=== PATIENT | female | born 1960 | race Caucasian/White ===

== ENCOUNTER 2018-06-06 11:02 | Outpatient (CLI) | payer OTHER ==
--- NOTE | 2018-06-06 13:45 | MMO ---
BILATERAL SCREENING MAMMOGRAM: History: 57-year-old female. Routine screening mammography. Comparison: 07-24-14, 11-26-11 Technique: CC and MLO views of both breasts were submitted for interpretation. Images obtained with implants pre sent and implants displaced. FINDINGS: Breasts are composed of scattered fibroglandular tissue. Bilaterally, no suspicious mass, architectur al distortion, or suspicious calcifications. There are benign appearing calcifications in the left an d right breasts. Bilateral implants are intact. IMPRESSION: BIRADS category 2 - benign findings. Recommend annual screening mammography. POS: [facility]
== END 2018-06-06 11:03 | disposition home or self-care (01) ==
LOC: SCSMAMMO 11:02
PROVIDERS: ATTEND Family Medicine
DX: Z12.31 Encounter for screening mammogram for malignant neoplasm of breast (principal)
CPT/HCPCS: 77067

== ENCOUNTER 2018-10-25 08:42 | Outpatient (CLI) | payer OTHER ==
--- NOTE | 2018-10-25 09:33 | RAD ---
LEFT FOOT THREE VIEWS: History: Injury with pain in left foot. FINDINGS: There is a small enthesophyte from the plantar calcaneus. Tarsals appear intact. Mild degenerative ch anges in the intertarsal joints and at the tarsal metatarsal joints. The metatarsal and phalanges are intact. MTP joints appear unremarkable. IMPRESSION: Small enthesophyte from the plantar calcaneus and mild degenerative changes as described. No acute ab normality. POS: [facility]
== END 2018-10-25 08:43 | disposition home or self-care (01) ==
LOC: BICRAD 08:42
PROVIDERS: ATTEND Family Medicine
DX: M79.672 Pain in left foot (principal); M77.32 Calcaneal spur, left foot

== ENCOUNTER 2020-01-17 13:41 | Outpatient (CLI) | payer BC ==
--- NOTE | 2020-01-17 18:09 | MRI ---
MRI OF THE LEFT KNEE PERFORMED WITH AND WITHOUT CONTRAST ENHANCEMENT: 01/17/20 HISTORY: Patient has a mass that has been there for years but has gotten bigger and painful in the past seven months. Marker placement in the area of interest. The anterior and posterior cruciate ligaments are intact. Medial and lateral menisci and medial and lateral collateral ligaments and iliotibial band regions ap pear unremarkable. Patellar articular cartilage shows some thinning of the lateral facets. There is subchondral marrow e criss change. Medial and lateral patellar retinaculum and quadriceps and patellar tendons are normal. There is a multiloculated superficial subcutaneous mass along the posterior aspect of the knee corres ponding to patient's palpable abnormality. It has no deep extension. It does show some peripheral enh ancement around what appears to be more central fluid density. It measures 3.1 cm in diameter and 11 to 12 mm in depth. IMPRESSION: Superficial soft tissue mass with some peripheral enhancement confined to the subcutaneous tissue rosa ng the posterior aspect of the knee. Margins of this are fairly well defined. This has more of a dayanara gn appearance but a low grade malignancy is not excluded. It appears to involve the skin and squamous or basal cell carcinoma have to be a consideration. There is no deep extension of this lesion. POS: [facility] [place]
== END 2020-01-17 13:42 | disposition home or self-care (01) ==
LOC: SCSMRI 13:41
PROVIDERS: ATTEND Orthopaedic Surgery
DX: M25.562 Pain in left knee (principal); R22.42 Localized swelling, mass and lump, left lower limb

== ENCOUNTER 2020-12-27 13:54 | Outpatient (CLI) | payer BC | END 2020-12-27 13:55 | disposition home or self-care (01) | LOC: BICMAMMO 13:54 | PROVIDERS: ATTEND Family Medicine | DX: Z12.31 Encounter for screening mammogram for malignant neoplasm of breast (principal); Z98.82 Breast implant status | CPT/HCPCS: 77063; 77067 ==

== ENCOUNTER 2021-03-24 09:17 | Outpatient (CLI) | payer BC | END 2021-03-24 09:18 | disposition home or self-care (01) | LOC: BICRAD 09:17 | PROVIDERS: ATTEND Specialist | DX: M25.552 Pain in left hip (principal) ==

== ENCOUNTER 2023-10-21 12:23 | Outpatient (CLI) | payer BC | END 2023-10-21 12:24 | disposition home or self-care (01) | LOC: BICRAD 12:23 | PROVIDERS: ATTEND Family Medicine | DX: J20.9 Acute bronchitis, unspecified (principal) | CPT/HCPCS: 71046 ==